=== PATIENT | female | born 1995 | race Caucasian/White ===

== ENCOUNTER 2019-06-19 12:15 | Emergency (ER) | payer MEDICAID ==
[2019-06-19 12:21] VITALS: BP 151/75
[2019-06-19] MEDS ORDERED: NEOMY SULF/POLYMYX B SULF/HC OTIC SUSP 10 ML AU ONE (12:39)
--- NOTE | 2019-06-19 12:45 | ER Document Report ---
HPI - HPI Patient complains to provider of: Lateral ear pain Time Seen by Provider: 06/19/19 12:34 Pain Level: 2 Context: 23-year-old female approximately 22 weeks G4, P3 presents to the emergency department with complaints of bilateral ear drainage and pain. Reports she went swimming last weekend. Reports the pain started with the drainage a couple days ago. Denies fever vomiting diarrhea. Denies history of ear surgeries. Reports she has a history of psoriasis. No other complaints Associated Symptoms: None Exacerbated by: Denies Relieved by: Denies - REPRODUCTIVE Reproductive: REPORTS: : Past Medical History - General Information source: Patient Last Menstrual Period: 22 weeks - Social History Smoking Status: Unknown if Ever Smoked Chew tobacco use (# tins/day): No Frequency of alcohol use: None Drug Abuse: None Lives with: Family Family History: None Patient has suicidal ideation: No Patient has homicidal ideation: No Skin Medical History: Reports Hx Psoriasis Surgical Hx: Negative Vertical Provider Document - CONSTITUTIONAL Agree With Documented VS: Yes Exam Limitations: No Limitations General Appearance: WD/WN, No Apparent Distress - HEENT HEENT: Atraumatic, Normocephalic. negative: Pharyngeal Erythema, Tympanic Membrane Red - bilateral EAC with swelling, drainage, slight erythema - NECK Neck: Normal Inspection, Supple - RESPIRATORY Respiratory: Breath Sounds Normal, No Respiratory Distress - CARDIOVASCULAR Cardiovascular: Regular Rate - MUSCULOSKELETAL/EXTREMETIES Musculoskeletal/Extremeties: MAEW, FROM - NEURO Level of Consciousness: Awake, Alert, Appropriate Motor/Sensory: No Motor Deficit - DERM Integumentary: Warm, Dry Course - Re-evaluation Re-evalutation: 06/19/19 13:12 You were placed in the left ear without problems. Patient tolerated procedure without complaints. Patient instructed on Cortisporin otic. Instructed to monitor symptoms. Instructed to monitor temperature return for worsening condition. She was instructed to follow-up with primary care provider for recheck within 1 week. She verbalized understanding to all instructions. - Vital Signs Vital signs: Temp Pulse Resp BP Pulse Ox 98.5 F 110 H 18 151/75 H 98 06/19/19 12:20 06/19/19 12:20 06/19/19 12:20 06/19/19 12:20 06/19/19 12:20 Discharge - Discharge Clinical Impression: Bilateral otitis externa Qualifiers: Otitis externa type: unspecified type Chronicity: acute Qualified Code(s): H60.503 - Unspecified acute noninfective otitis externa, bilateral Condition: Stable Disposition: HOME, SELF-CARE Instructions: Acetaminophen, Use of Ear Drops ([facility]), Using Ear Drops with a Wick ([facility]), Otitis Externa ([facility]) Additional Instructions: *You have been evaluated for ear pain, otitis externa *Use ear drops as prescribed 4 drops 4 times daily for 7 days *Take tylenol as indicated for pain *Follow up with a primary care provider within 1 week for recheck *Return to the emergency department for worsening condition, concerns, needs Forms: Elevated Blood Pressure
== END 2019-06-19 13:10 | disposition home or self-care (01) ==
LOC: ER 12:15
DX: O26.892 Other specified pregnancy related conditions, second trimester (principal); H60.503 Unspecified acute noninfective otitis externa, bilateral; Z3A.22 22 weeks gestation of pregnancy
CPT/HCPCS: 99282; J3490

== ENCOUNTER 2019-09-15 11:11 | Inpatient (IN) | payer MEDICAID ==
[2019-09-15] MEDS ORDERED: BETAMET ACET/BETAMET NA INJ 6 MG/1 ML IM ONE (11:18)
[2019-09-15] MEDS ORDERED: BETAMET ACET/BETAMET NA INJ 6 MG/1 ML ONE (11:38)
[2019-09-15 11:54] LABS: ABSOLUTE EOSINOPHILS # (AUTO) 0.1 10^3/uL (0.0-0.6); ABSOLUTE LYMPHOCYTES (AUTO) 1.9 10^3/uL (0.5-4.7); ABSOLUTE MONOCYTES (AUTO) 0.8 10^3/uL (0.1-1.4); ABSOLUTE NEUT (AUTO) 9.3 10^3/uL (1.7-8.2); BASOPHILS % (AUTO) 0.4 % (0-2); EOSINOPHILS % (AUTO) 0.8 % (0-6); HEMATOCRIT 36.9 % (36.0-47.0); HEMOGLOBIN 12.7 g/dL (12.0-15.5); LYMPHOCYTES % (AUTO) 15.6 % (13-45); MEAN CORPUSCULAR HEMOGLOBIN 29.7 pg (27.0-33.4); MEAN CORPUSCULAR HGB CONC 34.6 g/dL (32.0-36.0); MEAN CORPUSCULAR VOLUME 86 fl (80-97); MONOCYTES % (AUTO) 6.3 % (3-13); PLATELET COUNT 163 10^3/uL (150-450); RED BLOOD COUNT 4.29 10^6/uL (3.72-5.28); RED CELL DISTRIBUTION WIDTH 13.8 % (11.5-14.0); SEGMENTED NEUTROPHILS % (AUTO) 76.9 % (42-78); TOTAL CELLS COUNTED % (AUTO) 100 %; WHITE BLOOD COUNT 12.1 10^3/uL (4.0-10.5)
[2019-09-15 11:54] LABS: URINE AMPHETAMINES SCREEN NEGATIVE; URINE BARBITURATES SCREEN NEGATIVE; URINE BENZODIAZEPINES SCREEN NEGATIVE; URINE COCAINE SCREEN NEGATIVE; URINE MARIJUANA (THC) SCREEN NEGATIVE; URINE METHADONE SCREEN NEGATIVE; URINE PHENCYCLIDINE SCREEN NEGATIVE
[2019-09-15] MEDS ORDERED: PENICILLIN G POTASSIUM 5,000,000 UNIT in DEXTROSE 5%-WATER 100 ML IV ONE (12:00)
[2019-09-15] MEDS: RINGERS SOLUTION,LACTATED 1,000 ML IV PRN ×3 (13:46→20:12)
[2019-09-15 13:56] LABS: AMORPHOUS SEDIMENT,URINE TRACE /HPF; APPEARANCE,URINE TURBID; BILIRUBIN,URINE NEGATIVE (NEGATIVE); COLOR,URINE AMBER; GLUCOSE, URINE NEGATIVE (NEGATIVE); KETONES,URINE 20 mg/dL (NEGATIVE); PROTEIN,URINE 100 mg/dL (NEGATIVE); URINE SPECIFIC GRAVITY 1.026
[2019-09-15] MEDS ORDERED: CLINDAMYCIN 900 MG/D5W RTU 0 MG/0 ML RTUPB IV ONE (15:14)
[2019-09-15] MEDS ORDERED: NALBUPHINE HCL INJ 10 MG/1 ML AMPULE ONE (16:00)
[2019-09-15] MEDS: PENICILLIN G POTASSIUM 2,500,000 UNIT in DEXTROSE 5%-WATER 50 ML IV SCH ×2 (16:00→20:28)
[2019-09-15] MEDS ORDERED: NALBUPHINE HCL INJ 10 MG/1 ML AMPULE INJ ONE (16:01)
--- NOTE | 2019-09-15 18:11 | Admission Physical ---
Datetime Report Generated by CPN: 09/15/2019 18:11 CURRENT ADMISSION Hx Assessment: The History has been Reviewed and is Current Chief Complaint: Uterine Contractions; Sent from OB Office for Evaluation and Treatment - Please Specify Indication for Induction: Not Applicable Admit Impression : , Intrauterine Admit Plan: Admit to Unit; Initiate Labor Protocol ALLERGIES Medication Allergies: No Medication Allergies: No Known Allergies (09/15/2019) Latex: No Latex Allergies OBSTETRICAL HISTORY EDC: 10/18/2019 00:00 : 4 Para: 3 Term: 2 : 1 Livin Gestational Diabetes: No Rh Sensitization: No Incompetent Cervix: Yes KELSEY: No Infertility: No ART Treatment: No Uterine Anomaly: No IUGR: No Hx Previous C/S: No Macrosomia: No Hx Loss/Stillborn: No PIH: Yes Hx : No Placenta Previa/Abruption: No Depression/PP Depression: No PTL/PROM: Yes Post Hemorrhage: No Current Procedures: Ultrasound Obstetrical History Comments: G1 - 05/20/14, (36 weeks?) female, preeclampsia G2 - 11/11/15 fullterm male, preeclampsia G3 - 03/31/17 fullterm male, preeclampsia G4 - current SEE RECORDS Alcohol: No Marijuana : No Cocaine: No Other Illicit Drugs: No Cigarettes: Former Smoker. [id number] Cigarette Frequency: 5 - 10 per day MEDICAL HISTORY Diabetes: No Blood Transfusion: No Pulmonary Disease (Asthma, TB): No Breast Disease: No Hypertension: Yes Puffer Tender Surgery: No Heart Disease: No Hosp/Surgery: No Autoimmune Disorder: Yes Anesthetic Complications: No Kidney Disease: No Abnormal Pap Smear: No Neuro/Epilepsy: No Psychiatric Disorders: No Other Medical Diseases: No Hepatitis/Liver Disease: No Significant Family History: No Varicosities/Phlebitis: No Trauma/Violence : No Thyroid Dysfunction: No Medical History Comments: preeclampsia with all pregnancies, psoriasis, INFECTIOUS HISTORY Gonorrhea: No Genital Herpes: No Chlamydia: No Tuberculosis: No Syphilis: No Hepatitis: No HIV/AIDS Exposure: No Rash or Viral Illness: No HPV: No PHYSICAL EXAM General: Normal Heart: Normal Lungs: Normal Abdomen: Normal Extremities: Abnormal Pelvic Type: Adequate Vital Signs: Reviewed; Within Normal Limits VAGINAL EXAM Contraction Comments: irregular MEMBRANES Membranes: Intact FETUS A EGA: 35.2 Monitoring: External US FHR Category: Category I Presentation: Vertex Admit Comment: 23yo at 35w2d into L_D from office. Pt receives care at [facility] and presented to office complaining of contractions and sent over for evaluation of pre-term labor. Pt is O neg, RI, , with significant history of obesity, pre-eclampsia x3 and 2 deliveries. Pt reports occasional headaches for the past couple of months and denies other s/s of pre-e. Pt was checked and found to be 4-5cm earlier today and has progressed to 6cm. Discussed with neonatology and Dr. Siddiqui who is the OB iron handler today and decision to admit was made. First dose of steriods given as well as PCN for GBS prophylaxis. GBS and gc/chlam obtained on admission. Nubain given for pain, plan is expectant management at this time. PLANS FOR LABOR AND DELIVERY Labor and Delivery: None Pain Management: Epidural Feeding Preference: Breast Benefit of Breast Feed Discussed: Yes Circumcision: N/A INFORMED CONSENT Assignment: Arianna Siddiqui MD Signature: with User ID: Zach : with User ID: [email or web address]
[2019-09-15] MEDS ORDERED: MISOPROSTOL 0.2 MG TABLET ONE (19:38)
[2019-09-15] MEDS ORDERED: OXYTOCIN 10 UNIT/ML VIAL ONE (19:38)
[2019-09-15] MEDS ORDERED: LIDOCAINE 1% INJ-PF (10 MG/ML) 30 ML SDV ONE (19:38)
[2019-09-15] MEDS ORDERED: OXYTOCIN/0.9 % SODIUM CHLORIDE 30 UNIT/500 ML RTUINJ ONE (19:38)
[2019-09-15] MEDS ORDERED: EPHEDRINE SULFATE INJ 50 MG/1 ML AMPULE ONE (20:22)
[2019-09-15] MEDS ORDERED: FENTANYL/BUPIVACAINE/NS/PF 300 MCG/150 ML RTUINJ EPI ONE (20:22)
[2019-09-15] MEDS ORDERED: ROPIVACAINE HCL 0.2% INJ/PF (2 MG/ML) 20 ML SDV ONE (20:22)
[2019-09-15 21:25] LABS: CHLAM PCR NOT DETECTED (NOT DETECT)
[2019-09-16] MEDS: RINGERS SOLUTION,LACTATED 1,000 ML IV PRN (04:28)
[2019-09-16] MEDS: PENICILLIN G POTASSIUM 2,500,000 UNIT in DEXTROSE 5%-WATER 50 ML IV SCH ×4 (04:29→12:00)
[2019-09-16] MEDS ORDERED: OXYTOCIN/0.9 % SODIUM CHLORIDE 30 UNIT/500 ML RTUINJ IV PRN (07:49)
[2019-09-16] MEDS ORDERED: FENTANYL/BUPIVACAINE/NS/PF 300 MCG/150 ML RTUINJ EPI ONE (08:57)
--- NOTE | 2019-09-16 08:59 | L&D Progress Notes ---
PROGRESS NOTES Datetime Report Generated by CPN: 09/16/2019 08:58 PROGRESS NOTE Comment: pt comfortable with eoidural, discussed POC with Dr. Santos, start Pitocin, Cat 1 strip, Betamethasone x 2, start Pitocin, pt agrees with POC VAGINAL EXAM Contractions: irregular LAST VAGINAL EXAM-NURSING Nursing Exam Dilitation: 6.0 Nursing Exam Effacement: 90 Nursing Exam Station: -2 Nursing Exam Contractions: irregular MEMBRANES Membranes: Intact FETUS A Presentation: Vertex SIGNATURE SIGNATURE: [id number];[id number] Assignment: Jax Santos MD Signature: with User ID: [email or web address] : with User ID: [email or web address]
--- NOTE | 2019-09-16 10:50 | L&D Progress Notes ---
PROGRESS NOTES Datetime Report Generated by CPN: 09/16/2019 10:50 PROGRESS NOTE Comment: VE 6/90/-3, unable to rupture membranes, comfortable with contractions, Cat 1, will reposition and ROM when vtx down VAGINAL EXAM Contractions: irregular LAST VAGINAL EXAM-NURSING Nursing Exam Dilitation: 5-6 Nursing Exam Effacement: 90 Nursing Exam Station: -3 Nursing Exam Contractions: irregular MEMBRANES Membranes: Intact FETUS A Presentation: Vertex SIGNATURE SIGNATURE: [id number];[id number] Assignment: Jax Santos MD Signature: with User ID: [email or web address] : with User ID: [email or web address]
--- NOTE | 2019-09-16 14:50 | Warning Signs in Babies ---
VOD Warning Signs Datetime Report Generated by N: 09/16/2019 14:49 VOD#608 -Warning Signs in Babies: Viewed with Parent(s)/Family (09/15/2019 12:31:Edie AUDELIA Keene)
[2019-09-16] MEDS ORDERED: MISOPROSTOL 0.2 MG TABLET PR ONE (15:20)
--- NOTE | 2019-09-16 15:29 | Delivery Summary ---
Del Sum A-C Datetime Report Generated by CPN: 09/16/2019 15:29 DELIVERY PERSONNEL DELIVERY PERSONNEL: [id number] Delivery Doctor:: Sophia Pope CNM Nurse Textile Knitter Certified:: Sophia Pope CNM Labor and Delivery Nurse:: Edie Keene RNrailroad car loader Nurse:: JOE Omalley Nursery Nurse:: AUDELIA Woodall/DOUG: Heide Baocn CNA II MATERNAL INFORMATION Delivery Anesthesia: Epidural Medications After Delivery: Pitocin 30 Units in 500ml NS/D5W Delivery QBL: 50 Maternal Complications: Other Complication Details: 35.3 weeks Provider Comments: Progressed quickly to complete and started pushing, viable female from OA to WHIT over intsact perineum, cord clamped and cut and given to nursery nurse, spont delivery of small placenta and sent to pathology, cord blood to lab. FFFM, no tears, uterine massage, IV Pitocin (Annotations: Data stored by CPN on behalf of user) LABOR SUMMARY EDC: 10/18/2019 00:00 No. Babies in Womb: 1 Attempted: No Labor Anesthesia: Epidural LABOR INFORMATION Reason for Induction: Not Applicable Onset of Labor: 09/15/2019 19:39 Complete Dilatation: 09/16/2019 13:40 Oxytocin: Augmentation Group B Beta Strep: UNKNOWN Antibiotics # of Doses: 6 Antibiotics Time of Last Dose: 1200 Name of Antibiotic Given: Penicillin G Steroids Given: Partial Course Reason Steroids Not Administered: Indication MEMBRANES Membranes Rupture Method: Artificial Rupture of Membranes: 09/16/2019 13:04 Length of Rupture (hr): 0.68 Amniotic Fluid Color: Clear Amniotic Fluid Amount: Large Amniotic Fluid Odor: Normal STAGES OF LABOR Stage 1 hr: 18 Stage 1 min: 1 Stage 2 hr: 0 Stage 2 min: 5 Stage 3 hr: 0 Stage 3 min: 2 Total Time in Labor hr: 18 Total Time in Labor min: 8 VAGINAL DELIVERY Episiotomy: None Laceration #1: None Laceration Extension #1: N/A Laceration Repair: Not Applicable Sponge Count Correct: N/A Sharps Count Correct: N/A CSECTION DELIVERY Primary Indication: N/A Secondary Indication: N/A CSection Incidence: N/A Labor: N/A Elective: N/A CSection Incision: N/A BABY A INFORMATION Delivery Date/Time: 09/16/2019 13:45 Method of Delivery: Vaginal Nurse Controlled Delivery: No Born in Route : No : N/A Forceps: N/A Vacuum Extraction: N/A Shoulder Dystocia : No PRESENTATION/POSITION BABY A Presentation: Cephalic Cephalic Presentation: Vertex Vertex Position: Right Occipital Anterior Breech Presentation: N/A PLACENTA INFORMATION BABY A Placenta Delivery Time : 09/16/2019 13:47 Placenta Method of Delivery: Spontaneous Placenta Status: Delivered SCORES BABY A Heart Rate 1 min: >100 bpm Resp Effort 1 min: Good Cry Reflex Irritability 1 min: Cough or Sneeze or Pulls Away Muscle Tone 1 min: Active Motion Color 1 min: Blue/Pale Resuscitation Effort 1 min: Tactile Stimulation SCORE 1 MIN: 8 Heart Rate 5 min: >100 bpm Resp Effort 5 min: Good Cry Reflex Irritability 5 min: Cough or Sneeze or Pulls Away Muscle Tone 5 min: Active Motion Color 5 min: Body Edgard, Extremities Blue Resuscitation Effort 5 min: N/A SCORE 5 MIN: 9 Resuscitation Effort 10 min: N/A INFORMATION BABY A Gestational Age at Delivery: 35.3 Gestational Status: Late - 34- 36.6 Weeks Outcome : Liveborn Infant Condition : Stable Sex: Female IDENTIFICATION BABY A Verification Date/Time: 09/16/2019 14:07 ID Band Number: [id number] Mother's Name Verified: Yes Infant RN Verifying : AFeuston, RN and J. Niebuhr, RN WEIGHT/LENGTH BABY A Birthweight (gm): 3010 Infant Weight (lb): 6 Infant Weight (oz): 10 Infant Length (in): 18.50 Length (cm): 46.99 CORD INFORMATION BABY A No. Cord Vessels: 3 Nuchal Cord : Around Neck x1, Loose Cord Blood Taken: Yes-For Eval (Mom's Blood Type - or O+) Infant Suction: None ASSESSMENT BABY A Infant Complications: Other Complications- Other: 35+3 Physical Findings at Delivery: Bruising Skin to Skin: Yes Infant Care By: Sari Addison RN Transferred To: Remains with Mother BABY B INFORMATION : N/A
[2019-09-16] MEDS ORDERED: ZOLPIDEM TARTRATE 5 MG TABLET PO PRN (16:58)
[2019-09-16] MEDS ORDERED: NA PHOS,M-B/NA PHOS,DI-BA (ADULT) 133 ML ENEMA PR PRN (16:58)
[2019-09-16] MEDS ORDERED: MAGNESIUM HYDROXIDE SUSP 30 ML UDCUP PO PRN (16:58)
[2019-09-16] MEDS ORDERED: DIPHENHYDRAMINE HCL 25 MG CAPSULE PO PRN (16:58)
[2019-09-16] MEDS ORDERED: DIBUCAINE 1% OINTMENT 28 GM TP PRN (16:58)
[2019-09-16] MEDS ORDERED: GLYCERIN/WITCH HAZEL LEAF 1 EACH MED..WIPE TP PRN (16:58)
[2019-09-16] MEDS ORDERED: DIPH/PERTUSS(ACELL)/TETANUS VAC/PF 0.5 ML SYR (>=10YO) IM PRN (16:58)
[2019-09-16] MEDS ORDERED: ACETAMINOPHEN WITH CODEINE #3 TABLET PO PRN ×2 (16:58)
[2019-09-16] MEDS ORDERED: PROMETHAZINE HCL 25 MG SUPP.RECT PR PRN (16:58)
[2019-09-16] MEDS ORDERED: MEASLES,MUMPS&RUBELLA VACC/PF 0.5 ML VIAL SUBCUT PRN (16:58)
[2019-09-16] MEDS ORDERED: PROMETHAZINE HCL 25 MG TABLET PO PRN (16:58)
[2019-09-16] MEDS ORDERED: BENZOCAINE/MENTHOL AEROSOL SPRAY 56 ML TOP PRN (16:58)
[2019-09-16] MEDS ORDERED: ACETAMINOPHEN 650 MG SUPP.RECT PR PRN (16:58)
[2019-09-16] MEDS ORDERED: PROMETHAZINE HCL INJ 25 MG/1 ML VIAL IV PRN (16:58)
[2019-09-16] MEDS ORDERED: PSEUDOEPHEDRINE HCL 30 MG TABLET PO PRN (16:58)
[2019-09-16] MEDS: FERROUS SULFATE 325 MG TABLET PO SCH (17:57)
[2019-09-16] MEDS: DOCUSATE SODIUM 100 MG CAPSULE PO SCH (17:57)
[2019-09-16] MEDS: IBUPROFEN 800 MG TABLET PO SCH (22:09)
[2019-09-16] MEDS: FAMOTIDINE 20 MG TABLET PO SCH (22:10)
[2019-09-17] MEDS: IBUPROFEN 800 MG TABLET PO SCH ×3 (05:08→22:04)
[2019-09-17 07:38] LABS: HEMATOCRIT 27.9 % (36.0-47.0); MEAN CORPUSCULAR HEMOGLOBIN 30.2 pg (27.0-33.4); MEAN CORPUSCULAR HGB CONC 34.8 g/dL (32.0-36.0); MEAN CORPUSCULAR VOLUME 87 fl (80-97); PLATELET COUNT 137 10^3/uL (150-450); RED BLOOD COUNT 3.21 10^6/uL (3.72-5.28); RED CELL DISTRIBUTION WIDTH 13.8 % (11.5-14.0); WHITE BLOOD COUNT 10.5 10^3/uL (4.0-10.5)
[2019-09-17 07:39] LABS: HEMOGLOBIN 9.7 g/dL (12.0-15.5)
[2019-09-17] MEDS: FERROUS SULFATE 325 MG TABLET PO SCH ×2 (10:19→17:06)
[2019-09-17] MEDS: DOCUSATE SODIUM 100 MG CAPSULE PO SCH ×2 (10:19→17:06)
[2019-09-17] MEDS: PRENATAL VITAMIN W DHA CAPSULE PO SCH (10:19)
[2019-09-17] MEDS: SENNOSIDES/DOCUSATE 8.6-50 MG 1 EACH TABLET PO SCH (10:19)
[2019-09-17] MEDS: FAMOTIDINE 20 MG TABLET PO SCH ×2 (10:20→22:04)
--- NOTE | 2019-09-17 10:59 | PDOC PROGRESS REPORT ---
Subjective-OB Progress Note for:: 09/17/19 - PP Day#1, doing well, UOB, voiding, O neg, Baby is O+, rubella immune, , UOB, voiding Physical Exam (OB) Vital Signs: Temp Pulse Resp BP Pulse Ox 97.7 F 51 L 16 146/97 H 100 09/17/19 08:00 09/17/19 08:00 09/17/19 08:00 09/17/19 08:00 09/17/19 08:00 Intake & Output 09/16/19 09/17/19 09/18/19 06:59 06:59 06:59 Intake Total 1804 420 Balance 1804 420 Weight 84.7 kg - General General Appearance: Appears well, Alert In distress: None - PIH/Pre-Eclampsia DTR's: 2 + Clonus: Negative Headache: Absent Epigastric Pain: No Visual Changes: No - Lochia Lochia Amount: Scant < 10 ml Lochia Color: Rubra/Red - Abdomen Description: Soft Hernia Present: No Fundal Description: Firm, Midline Fundal Height: u/3 - u/4 - Respiratory Respiratory Status: No respiratory distress - Abdominal Inspection: Normal Distension: No distension, Distended - Genitourinary Genitourinary Note: voiding - Extremities Upper extremity: Normal inspection Lower extremities: Normal inspection Objective-Diagnostic Laboratory: 09/17/19 06:40 09/17/19 09/17/19 06:40 06:40 WBC 10.5 RBC 3.21 L Hgb 9.7 L D Hct 27.9 L MCV 87 MCH 30.2 MCHC 34.8 RDW 13.8 Plt Count 137 L Blood Type O NEGATIVE Assessment and Plan(PN) - Assessment and Plan (1) Acute blood loss anemia Is this a current diagnosis for this admission?: Yes (2) contractions Is this a current diagnosis for this admission?: Yes (3) delivered vaginally, 2,000-2,499 grams, 35-36 completed weeks Is this a current diagnosis for this admission?: Yes (4) Type O blood, Rh negative Is this a current diagnosis for this admission?: Yes Plan: routine PP orders, ambulation encouraged, needs Rhogam, recheck BP this morning - Time Spent with Patient Time with patient: Less than 15 minutes Medications reviewed and adjusted accordingly: Yes - Disposition Anticipated Discharge Disposition: Home, Self Care Anticipated Discharge Timeframe: within 24 hours
[2019-09-18] MEDS: IBUPROFEN 800 MG TABLET PO SCH (05:23)
[2019-09-18] MEDS: FAMOTIDINE 20 MG TABLET PO SCH (09:25)
[2019-09-18] MEDS: PRENATAL VITAMIN W DHA CAPSULE PO SCH (09:25)
[2019-09-18] MEDS: DOCUSATE SODIUM 100 MG CAPSULE PO SCH (09:25)
[2019-09-18] MEDS: SENNOSIDES/DOCUSATE 8.6-50 MG 1 EACH TABLET PO SCH (09:25)
[2019-09-18] MEDS: FERROUS SULFATE 325 MG TABLET PO SCH (09:25)
--- NOTE | 2019-09-18 10:30 | PDOC DISCHARGE SUMMARY ---
Impression - Admit/DC Date/PCP Admission Date/Primary Care Provider: 09/15/19 11:19 Discharge Date: 09/18/19 - PP Day #2, doing well, no complaints, - Discharge Diagnosis (1) Acute blood loss anemia Is this a current diagnosis for this admission?: Yes (2) contractions Is this a current diagnosis for this admission?: Yes (3) delivered vaginally, 2,000-2,499 grams, 35-36 completed weeks Is this a current diagnosis for this admission?: Yes (4) Type O blood, Rh negative Is this a current diagnosis for this admission?: Yes - Additional Information Resuscitation Status: Full Code Discharge Diet: As Tolerated, Regular Discharge Activity: Activity As Tolerated, No Lifting Over 10 Pounds, Pelvic Rest Prescriptions: Ferrous Sulfate [Feosol 325 mg Tablet] 325 mg PO BID #60 tablet Ibuprofen [Motrin 800 mg Tablet] 800 mg PO Q8 #60 tablet Home Medications: Vitamin [-U Multiple Vitamin Capsule] 1 cap PO DAILY 09/15/19 Ferrous Sulfate [Feosol 325 mg Tablet] 325 mg PO BID #60 tablet 09/18/19 Ibuprofen [Motrin 800 mg Tablet] 800 mg PO Q8 #60 tablet 09/18/19 HPI Reason(s) for Admission: Labor Procedures: Ultrasound Intrapartum Procedure(s): Spontaneous Vaginal Delivery Hospital Course Hospital Course: routine Results Laboratory Results: WBC 10.5 10^3/uL (4.0-10.5) 09/17/19 06:40 RBC 3.21 10^6/uL (3.72-5.28) L 09/17/19 06:40 Hgb 9.7 g/dL (12.0-15.5) L D 09/17/19 06:40 Hct 27.9 % (36.0-47.0) L 09/17/19 06:40 MCV 87 fl (80-97) 09/17/19 06:40 MCH 30.2 pg (27.0-33.4) 09/17/19 06:40 MCHC 34.8 g/dL (32.0-36.0) 09/17/19 06:40 RDW 13.8 % (11.5-14.0) 09/17/19 06:40 Plt Count 137 10^3/uL (150-450) L 09/17/19 06:40 Lymph % (Auto) 15.6 % (13-45) 09/15/19 11:39 Woods % (Auto) 6.3 % (3-13) 09/15/19 11:39 Eos % (Auto) 0.8 % (0-6) 09/15/19 11:39 Baso % (Auto) 0.4 % (0-2) 09/15/19 11:39 Absolute Neuts (auto) 9.3 10^3/uL (1.7-8.2) H 09/15/19 11:39 Absolute Lymphs (auto) 1.9 10^3/uL (0.5-4.7) 09/15/19 11:39 Absolute Monos (auto) 0.8 10^3/uL (0.1-1.4) 09/15/19 11:39 Absolute Eos (auto) 0.1 10^3/uL (0.0-0.6) 09/15/19 11:39 Absolute Basos (auto) 0.0 10^3/uL (0.0-0.2) 09/15/19 11:39 Seg Neutrophils % 76.9 % (42-78) 09/15/19 11:39 Urine Color SEMAJ 09/15/19 11:17 Urine Appearance TURBID 09/15/19 11:17 Urine pH 6.0 (5.0-9.0) 09/15/19 11:17 Ur Specific [place] 1.026 09/15/19 11:17 Urine Protein 100 mg/dL (NEGATIVE) H 09/15/19 11:17 Urine Glucose (UA) NEGATIVE mg/dL (NEGATIVE) 09/15/19 11:17 Urine Ketones 20 mg/dL (NEGATIVE) H 09/15/19 11:17 Urine Blood SMALL (NEGATIVE) H 09/15/19 11:17 Urine Nitrite (Reflex) NEGATIVE (NEGATIVE) 09/15/19 11:17 Urine Bilirubin NEGATIVE (NEGATIVE) 09/15/19 11:17 Urine Urobilinogen 2.0 mg/dL (<2.0) H 09/15/19 11:17 Leukocyte Esterase Rfl SMALL (NEGATIVE) H 09/15/19 11:17 Urine RBC (Auto) 6 /HPF 09/15/19 11:17 Urine WBC (Reflex) 1 /HPF 09/15/19 11:17 Squamous Epi Cells Auto 4 /HPF 09/15/19 11:17 Amorphous Sediment Auto TRACE /HPF 09/15/19 11:17 Urine Mucus (Auto) FEW /LPF 09/15/19 11:17 Urine Ascorbic Acid NEGATIVE (NEGATIVE) 09/15/19 11:17 Urine Opiates Screen NEGATIVE 09/15/19 11:17 Urine Methadone Screen NEGATIVE 09/15/19 11:17 Ur Barbiturates Screen NEGATIVE 09/15/19 11:17 Ur Phencyclidine Scrn NEGATIVE 09/15/19 11:17 Ur Amphetamines Screen NEGATIVE 09/15/19 11:17 U Benzodiazepines Scrn NEGATIVE 09/15/19 11:17 Urine Cocaine Screen NEGATIVE 09/15/19 11:17 U Marijuana (THC) Screen NEGATIVE 09/15/19 11:17 RPR NONREACTIVE (NONREACTIVE) 09/15/19 11:39 Chlamydia DNA (PCR) NOT DETECTED (NOT DETECT) 09/15/19 18:30 N.gonorrhoeae DNA (PCR) NOT DETECTED (NOT DETECT) 09/15/19 18:30 Blood Type O NEGATIVE 09/17/19 06:40 Blood Type Confirm O NEGATIVE 09/15/19 14:26 Antibody Screen POSITIVE 09/15/19 11:39 Antibody Identification RHOGAM INDUCED ANTI-D 09/15/19 11:39 Screen NEGATIVE 09/17/19 06:40 Crossmatch See Detail 09/15/19 11:39 Plan Plan of Treatment: d/c home, f/up with [facility] in 4 wks for PP check Time Spent: Less than 30 Minutes
[2019-09-18 14:14] VITALS: BP 132/78
== END 2019-09-18 14:47 | disposition home or self-care (01) | DRG 807 ==
LOC: LC 11:11 → LR 11:19 → 2S 09-16 17:20
PROVIDERS: ADMIT Obstetrics & Gynecology; ATTEND Obstetrics & Gynecology
PROC: 10E0XZZ Delivery of Products of Conception, External Approach (ICD-10-PCS; principal; 2019-09-16)
PROC: 3E0234Z Introduction of Serum, Toxoid and Vaccine into Muscle, Percutaneous Approach (ICD-10-PCS; 2019-09-17)
DX: O60.14X0 Preterm labor third trimester with preterm delivery third trimester, not applicable or unspecified (principal); Z37.0 Single live birth; O69.81X0 Labor and delivery complicated by cord around neck, without compression, not applicable or unspecified; O99.02 Anemia complicating childbirth; D64.9 Anemia, unspecified; O99.334 Smoking (tobacco) complicating childbirth; Z3A.35 35 weeks gestation of pregnancy; F17.210 Nicotine dependence, cigarettes, uncomplicated; O99.214 Obesity complicating childbirth; E66.9 Obesity, unspecified; O26.893 Other specified pregnancy related conditions, third trimester; Z67.41 Type O blood, Rh negative
CPT/HCPCS: 1967; 36415; 80307; 81001; 85025; 85027; 85461; 86592; 86850; 86870; 86900; 86901; 86920; 86922; 87077; 87081; 87086; 87088; 87491; 87591; 88307; 94760; 96372; C1758; J0702; J2300; J2540; J2590; J2790; J2795; J3010; J3490; J7060